=== PATIENT | male | born 1960 | race Caucasian/White ===

== ENCOUNTER 2024-02-22 15:18 | Outpatient (CLI) | payer MEDICARE, SELFPAY ==
--- NOTE | ~2024-02-22 | CT_ITS ---
EXAMINATION: CT abdomen pelvis w con DATE: 02/22/2024 16:15 INDICATION: Epigastric abdominal pain. Abnormal liver function tests. TECHNIQUE: Computed tomography (CT) of the abdomen and pelvis was performed with 100 mL Omnipaque 350 intravenous contrast. Automated exposure control and iterative reconstruction technique were employe d. The dose-length product was 443.23 mGy-cm. COMPARISON: None. FINDINGS: The visualized portions of the lung bases demonstrate mild atelectasis. No pleural effusion . The heart size is normal. There are coronary artery calcifications. No pericardial effusion. There is moderate intrahepatic biliary duct dilatation. 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 The g allbladder is distended. The pancreatic duct is dilated to 8 mm. There is a ill-defined hypodense mas s in the head of the pancreas measuring 3.0 cm. The spleen and left adrenal gland are normal. There i s a 2.2 cm mass in right adrenal gland. The kidneys are normal. The prostate is mildly enlarged. Ther e are no dilated loops of bowel. The appendix is not visualized. There are no pathologically enlarged lymph nodes. There is a right inguinal hernia containing fat. There is mild thoracic and lumbar spon dylosis. IMPRESSION: 1. 3.0 cm mass in the head of the pancreas with dilatation of the pancreatic duct, common duct, and g allbladder, suspicious for primary adenocarcinoma. ERCP is recommended. 2. 2.2 cm right adrenal mass, which may be an adenoma or less likely metastatic disease. Consider abd omen CT without and with contrast. Reviewed, dictated and finalized at location A. IMPRESSION: 1. 3.0 cm mass in the head of the pancreas with dilatation of the pancreatic du ct, common duct, and gallbladder, suspicious for primary adenocarcinoma. ERCP i s recommended. 2. 2.2 cm right adrenal mass, which may be an adenoma or less likely metastatic disease. Consider abdomen CT without and with contrast.
[2024-02-22 16:05] LABS: Estimated Glomerular Filt Rate > 60
== END 2024-02-22 15:19 | disposition home or self-care (01) ==
DX: K86.9 Disease of pancreas, unspecified (principal); K86.89 Other specified diseases of pancreas; K83.8 Other specified diseases of biliary tract; K82.8 Other specified diseases of gallbladder; R74.01 Elevation of levels of liver transaminase levels; R10.13 Epigastric pain
CPT/HCPCS: 74177; Q9967